=== PATIENT | female | born 2005 | race Two or more races ===

== ENCOUNTER → 2023-05-22 | Outpatient (CLI) | payer OTHER | END | disposition home or self-care (01) | LOC: PRENATAL 08:44 | PROVIDERS: ATTEND Obstetrics & Gynecology Maternal & Fetal Medicine | DX: O26.849 Uterine size-date discrepancy, unspecified trimester (principal); Z36.0 Encounter for antenatal screening for chromosomal anomalies; Z3A.15 15 weeks gestation of pregnancy ==

== ENCOUNTER 2023-06-11 14:45 | Emergency (ER) | payer OTHER ==
[~2023-06-11] VITALS: Ht 149.9 cm; Wt 69.4 kg
[2023-06-11] MEDS ORDERED: ZOFRAN8 MG (16:42)
[2023-06-11 23:24] LABS: HEMOGLOBIN 11.5 g/dL (12.0-15.00); MEAN CELL VOLUME 85.6 fL (80.00-100.00); MEAN CORPUSCULAR HGB CONC 33.9 g/dl (32.0-36.0); PLATELET COUNT 235 K/uL (150-450); RED BLOOD COUNT 3.97 M/uL (4.00-6.00); RED CELL DISTRIBUTION WIDTH 16.2 % (11.5-14.5)
[2023-06-11] MEDS ORDERED: DUI500 PO (23:58)
== END 2023-06-12 00:12 | disposition home or self-care (01) ==
LOC: EMR PED 14:45 → ER 15:25 → EMR PED 15:25 → ER 06-12 00:12
PROVIDERS: Nurse Practitioner Family
DX: Z34.90 Encounter for supervision of normal pregnancy, unspecified, unspecified trimester (principal); J06.9 Acute upper respiratory infection, unspecified; J00 Acute nasopharyngitis [common cold]; R53.81 Other malaise; Z20.822 Contact with and (suspected) exposure to COVID-19; E16.1 Other hypoglycemia; Z88.6 Allergy status to analgesic agent

== ENCOUNTER 2023-06-25 10:14 | Outpatient (CLI) | payer OTHER ==
[~2023-06-25 10:14] MED LIST: DUI500 PO; ZOFRAN8 MG
== END 2023-06-25 10:16 | disposition home or self-care (01) ==
LOC: PRENATAL 10:14
PROVIDERS: ATTEND Obstetrics & Gynecology Maternal & Fetal Medicine
DX: O35.9XX0 Maternal care for (suspected) fetal abnormality and damage, unspecified, not applicable or unspecified (principal); O35.3XX0 Maternal care for (suspected) damage to fetus from viral disease in mother, not applicable or unspecified; O44.00 Complete placenta previa NOS or without hemorrhage, unspecified trimester; Z3A.20 20 weeks gestation of pregnancy

== ENCOUNTER 2023-09-17 15:07 | Outpatient (CLI) | payer OTHER | END 2023-09-17 15:08 | disposition home or self-care (01) | LOC: PRENATAL 15:07 | PROVIDERS: ATTEND Obstetrics & Gynecology Maternal & Fetal Medicine | DX: O26.849 Uterine size-date discrepancy, unspecified trimester (principal); O36.8199 Decreased fetal movements, unspecified trimester, other fetus; Z3A.32 32 weeks gestation of pregnancy ==

== ENCOUNTER 2023-09-20 20:38 | Outpatient (CLI) | payer OTHER ==
[2023-09-20] MEDS ORDERED: PRENATAL CAPLE1 EAC1 PO (21:05)
[2023-09-20] MEDS ORDERED: FOLIC ACID20 MG PO (21:05)
[2023-09-20] MEDS ORDERED: CALCIUM500 M1 PO (21:06)
[2023-09-20] MEDS ORDERED: RINGERS SOLUTION,LACTATED 1,000 ML IV SCH (21:15)
[2023-09-20 21:48] LABS: HEMATOCRIT 35.5 % (36.0-45.00); HEMOGLOBIN 11.9 g/dL (12.0-15.00); MEAN CELL VOLUME 89.9 fL (80.00-100.00); MEAN CORPUSCULAR HEMOGLOBIN 30.2 pg (27.00-32.0); MEAN CORPUSCULAR HGB CONC 33.6 g/dl (32.0-36.0); PLATELET COUNT 233 K/uL (150-450); RED BLOOD COUNT 3.95 M/uL (4.00-6.00); RED CELL DISTRIBUTION WIDTH 12.9 % (11.5-14.5)
[2023-09-20 21:53] LABS: PH,URINE 5.5 (5.0-8.0); URINE APPEARANCE Turbid; URINE BILIRRUBIN Small (NEGATIVE); URINE BLOOD Negative; URINE COLOR Dark Yellow; URINE GLUCOSE Negative (NEGATIVE); URINE LEUKOCYTE Large; URINE NITRATE Positive; URINE PROTEIN 30 (NEGATIVE)
[2023-09-20 21:58] LABS: URINE RBC 20.6 uL (0.0-20.8); URINE WBC 2226.4 uL (0.0-23.2)
[2023-09-20 22:29] LABS: URINE BACTERIA > 9821.5 uL (0.0-1933); URINE EPITHELIAL CELLS > 201.7 uL (0.0-38.8)
[2023-09-20 22:32] LABS: URINE CRYSTALS MODERATE /HPF; URINE YEAST NEGATIVE /hpf
[2023-09-21] MEDS ORDERED: CEFAZOLIN SODIUM 1,000 MG VIAL IV SCH
== END 2023-09-21 11:19 | disposition home or self-care (01) ==
LOC: OBS/DEL 20:38
PROVIDERS: ATTEND Obstetrics & Gynecology
DX: O23.43 Unspecified infection of urinary tract in pregnancy, third trimester (principal); N39.0 Urinary tract infection, site not specified; Z3A.32 32 weeks gestation of pregnancy